=== PATIENT | female | born 1945 | race Caucasian/White ===

== ENCOUNTER → 2018-07-23 | Outpatient (CLI) | payer MEDICARE, OTHER ==
[~2018-07-23] MED LIST: ADAL40PEN; ALBU90OI INH; ALPR.5; ASPI81CH; Cardizem CD 24240 MG PO; FERR325 PO; FISH OIL 1,0001 EAC1; K-Dur20 MEQ; Omeprazole20 M1; PRAVASTATIN SOD10 MG PO; Prozac20 MG; QVAR7.3 G1 IH; SYNTHROID25 MCG PO; TEMA7.5 PO; TOCO1000; TRIHYD5075 PO
== END | disposition home or self-care (01) ==
LOC: PLD 07:45 → LAB SHORT 07:45
DX: D04.39 Carcinoma in situ of skin of other parts of face (principal); C44.619 Basal cell carcinoma of skin of left upper limb, including shoulder
CPT/HCPCS: 88305

== ENCOUNTER → 2018-11-28 | Outpatient (CLI) | payer MEDICARE, OTHER ==
[2018-12-02 14:06] LABS: HPV 16 Negative (Negative); HPV 18 Negative (Negative); HPV OTHER HR TYPES Negative (Negative)
== END | disposition home or self-care (01) ==
LOC: LAB 15:30 → LAB SHORT 15:30
PROVIDERS: Internal Medicine
DX: Z12.4 Encounter for screening for malignant neoplasm of cervix (principal)
CPT/HCPCS: 87624; G0145

== ENCOUNTER 2020-03-18 09:52 | Day surgery (SDC) | payer MEDICARE, OTHER ==
[~2020-03-18] VITALS: Ht 162.6 cm; Wt 79.2 kg
[~2020-03-18 09:52] MED LIST changes: +DYAZIDE 37.5-21 EACH PO; +FERSU300 PO; +Flovent Disku100 MCG; +HUMIRA40 MG/0.2 INJ; +NYSTATIN SUSP PO; +OMEP20ER PO; +POTA10T PO; +PRAV20 PO; +PROAIR DIGIHAL90 MCG; +Prozac20 MG PO
[2020-03-18] MEDS ORDERED: ASPIR 8181 MG PO (10:35)
== END 2020-03-18 12:13 | disposition home or self-care (01) ==
LOC: ORSCSDS 09:52
PROVIDERS: Internal Medicine Gastroenterology
PROC: 0DBE8ZX Excision of Large Intestine, Via Natural or Artificial Opening Endoscopic, Diagnostic (ICD-10-PCS; principal; 2020-03-18 11:15)
PROC: 0DBP8ZX Excision of Rectum, Via Natural or Artificial Opening Endoscopic, Diagnostic (ICD-10-PCS; principal; 2020-03-18 11:15)
DX: K50.90 Crohn's disease, unspecified, without complications (principal); K64.8 Other hemorrhoids; I10 Essential (primary) hypertension; E78.5 Hyperlipidemia, unspecified; E03.9 Hypothyroidism, unspecified; J45.909 Unspecified asthma, uncomplicated; E66.9 Obesity, unspecified; Z68.30 Body mass index [BMI] 30.0-30.9, adult; K21.9 Gastro-esophageal reflux disease without esophagitis; Z87.891 Personal history of nicotine dependence; Z79.899 Other long term (current) drug therapy
CPT/HCPCS: 88305; J2704; J7120

== ENCOUNTER → 2020-09-20 | Outpatient (CLI) | payer MEDICARE, OTHER ==
[~2020-09-20] MED LIST changes: +ASPIR 8181 MG PO
[2020-09-20 17:40] LABS: Hematocrit 40.1 % (33.0-51.0); Hemoglobin 13.3 g/dL (11.5-16.0); Mean Corpuscular HGB 28.4 pg (26.0-34.0); Mean Corpuscular HGB Conc 33.2 g/dL (31.5-36.5); Mean Corpuscular Volume 86 fL (80-100); Platelet Count 294 K/mm3 (150-400); RDW Coefficient Variation 14.1 % (11.7-14.2); RDW Standard Deviation 43.6 fL (35.1-46.3); Red Blood Cell Count 4.69 M/mm3 (3.80-5.20)
[2020-09-20 18:49] LABS: BASOPHILS ABSOLUTE MAN 0.06 K/mm3 (0.00-0.23); BASOPHILS PERCENT MAN 1 % (0-2); EOSINOPHILS ABSOLUTE MAN 0.06 K/mm3 (0.00-0.68); EOSINOPHILS PERCENT MAN 1 % (0-6); LYMPHOCYTES ABSOLUTE MAN 2.29 K/mm3 (0.84-5.20); LYMPHOCYTES PERCENT MAN 37 % (21-46); MONOCYTES ABSOLUTE MAN 0.55 K/mm3 (0.16-1.47); MONOCYTES PERCENT MAN 9 % (4-13); NEUTROPHILS ABSOLUTE MAN 3.22 K/mm3 (1.96-9.15); SEG NEUTROPHILS PERCENT MAN 52 % (41-73); TOTAL CELLS COUNTED 100
[2020-09-22 16:10] LABS: QUANTIFERON MITOGEN VALUE 8.43 IU/mL (.); QUANTIFERON NIL VALUE 0.11 IU/mL (.); QUANTIFERON TB1 AG VALUE 0.11 IU/mL (.); QUANTIFERON TB2 AG VALUE 0.11 IU/mL (.); QUANTIFERON-TB GOLD PLUS Negative (Negative)
[2020-09-23 10:33] LABS: Anion Gap Unable to Calculate mmol/L (6-16)
[2020-09-23 10:35] LABS: Bun/Creatinine Ratio Unable to Calculate (12.0-20.0)
[2020-09-23 10:36] LABS: Albumin/Globulin Ratio Unable to Calculate (0.8-1.8); Glomerular Filtration Rate Unable to Calculate (60-)
[2020-09-23 10:37] LABS: Globulin, Blood Unable to Calculate g/dL (2.2-4.0)
[2020-09-23 10:40] LABS: Albumin, Blood 3.6 g/dL (3.4-5.0); Calcium, Blood 9.3 mg/dL (8.5-10.1); Globulin, Blood 3.7 g/dL (2.2-4.0); Potassium, Blood 3.8 mmol/L (3.5-5.5); Total Protein, Blood 7.3 g/dL (6.4-8.2)
[2020-09-23 10:41] LABS: Bilirubin, Total 0.4 mg/dL (0.1-1.0)
== END | disposition home or self-care (01) ==
LOC: LAB SHORT 14:48 → LAB 14:48
PROVIDERS: Internal Medicine Gastroenterology
DX: K50.80 Crohn's disease of both small and large intestine without complications (principal)
CPT/HCPCS: 36415; 80053; 85007; 85027; 86480

== ENCOUNTER → 2021-01-18 | Outpatient (CLI) | payer MEDICARE, OTHER ==
[2021-01-19 07:02] LABS: Adenovirus F 40/41 Not Detected (NOT DETECT); Astrovirus Not Detected (NOT DETECT); Campylobacter Sp Not Detected (NOT DETECT); Cryptosporidium Not Detected (NOT DETECT); Cyclospora Cayetanensis Not Detected (NOT DETECT); E. Coli O157 Not Detected (NOT DETECT); Entamoeba Histolytica Not Detected (NOT DETECT); Enteroaggregative E. coli-EAEC Not Detected (NOT DETECT); Enteropathogenic E. coli-EPEC Not Detected (NOT DETECT); Enterotoxigenic E. coli-ETEC Not Detected (NOT DETECT); Giardia Lamblia Not Detected (NOT DETECT); Norovirus GI/GII Not Detected (NOT DETECT); Plesiomonas Shigelloides Not Detected (NOT DETECT); Rotavirus A Not Detected (NOT DETECT); Salmonella Sp Not Detected (NOT DETECT); Sapovirus Not Detected (NOT DETECT); Shiga Toxin-prod E. coli-STEC Not Detected (NOT DETECT); Shigella/Enteroin E. coli-EIEC Not Detected (NOT DETECT); Vibrio Cholerae Not Detected (NOT DETECT); Vibrio Sp Not Detected (NOT DETECT); Yersinia Enterocolitica Not Detected (NOT DETECT)
== END | disposition home or self-care (01) ==
LOC: LAB 16:48 → LAB SHORT 16:48
PROVIDERS: Internal Medicine Gastroenterology
DX: R19.7 Diarrhea, unspecified (principal)
CPT/HCPCS: 0097U

== ENCOUNTER → 2023-05-28 | Outpatient (CLI) | payer MEDICARE, OTHER | LOC: PLD 14:51 → LAB SHORT 14:51 | DX: D22.72 Melanocytic nevi of left lower limb, including hip (principal) | CPT/HCPCS: 88305 ==